=== PATIENT | male | born 1945 | race Caucasian/White ===

== ENCOUNTER 2017-10-23 08:04 | Outpatient (CLI) | payer MEDICARE ==
[~2017-10-23] VITALS: Ht 167.6 cm; Wt 78.0 kg
[2017-10-23] MEDS ORDERED: normal saline 500ml IV soln 500 ML IV ONE (08:40)
[2017-10-23] MEDS ORDERED: nitroGLYCERIN 0.4mg SUBLingual tab SL PRN (08:40)
[2017-10-23] MEDS ORDERED: metoprolol tartrate 1mg/ml inj IV PRN (08:40)
[2017-10-23] MEDS ORDERED: atropine 0.1mg/ml 10ml syringe IV PRN (08:40)
[2017-10-23] MEDS ORDERED: CAFFEINE CITRATE 60 MG/3 ML injection vial IV ONE ×2 (08:40→10:13)
[2017-10-23] MEDS ORDERED: regadenoson 0.4mg/5ml syringe IV ONE ×2 (08:40→10:13)
[2017-10-23 10:15] VITALS: BP 132/81
[2017-10-23 10:28] VITALS: BP 124/78
[2017-10-23 10:29] VITALS: BP 97/57
[2017-10-23 10:30] VITALS: BP 101/67
[2017-10-23 10:31] VITALS: BP 99/65
[2017-10-23 10:32] VITALS: BP_SYST 102; BP_SYST 107; BP_DIAS 68
== END 2017-10-23 23:59 | disposition home or self-care (01) ==
LOC: RAD 08:04
PROVIDERS: ATTEND Internal Medicine Cardiovascular Disease
DX: I48.91 Unspecified atrial fibrillation (principal); R06.00 Dyspnea, unspecified
CPT/HCPCS: 78452; 93017; A9500; J7030; J0461